=== PATIENT | male | born 1960 | race Hispanic/Latino ===

== ENCOUNTER → 2018-12-01 | Outpatient (CLI) | payer OTHER ==
[~2018-12-01] MED LIST: ASPI-555 PO; CARV25TA PO; FURO40TA5 PO; LISI40TA4 PO; METF-446 PO; PHEN-615 PO; POTA10TA18 PO
== END | disposition home or self-care (01) ==
LOC: OIH 15:47
PROVIDERS: ATTEND Family Medicine
DX: I10 Essential (primary) hypertension (principal)
CPT/HCPCS: 71046